=== PATIENT | male | born 1990 | race Hispanic/Latino ===

== ENCOUNTER 2020-06-01 10:07 | Emergency (ER) | payer BC ==
[~2020-06-01] VITALS: Ht 167.6 cm; Wt 72.6 kg
== END 2020-06-01 10:49 | disposition home or self-care (01) ==
LOC: ER 10:15
DX: S00.83XA Contusion of other part of head, initial encounter (principal); R51.9 Headache, unspecified; V43.52XA Car driver injured in collision with other type car in traffic accident, initial encounter; Y92.488 Other paved roadways as the place of occurrence of the external cause
CPT/HCPCS: 99282